=== PATIENT | female | born 1960 | race American Indian/Alaskan Native ===

== ENCOUNTER 2017-01-30 21:21 | Emergency (ER) | payer MEDICAID ==
[2017-01-30 23:47] LABS: Anion Gap 17 mmol/L; Blood Urea Nitrogen 7 mg/dL (7-17); Calcium 8.8 mg/dL (8.4-10.2); Carbon Dioxide 23 mmol/L (22-30); Glucose 104 mg/dL (65-100); Potassium 3.6 mmol/L (3.6-5.0); Sodium 141 mmol/L (137-145)
[2017-01-31 00:03] LABS: Basophils % (Auto) 0.5 % (0.0-1.8); Eosinophils % (Auto) 0.9 % (0.0-4.3); Hematocrit 34.2 % (30.3-42.9); Hemoglobin 11.5 gm/dl (10.1-14.3); Mean Corpuscular HGB Conc 34 % (30-34); Mean Corpuscular Hemoglobin 30 pg (28-32); Mean Corpuscular Volume 90 fl (79-97); Platelet Count 307 K/mm3 (140-440); Red Blood Count 3.82 M/mm3 (3.65-5.03); White Blood Count 9.8 K/mm3 (4.5-11.0)
[2017-01-31] MEDS ORDERED: XYLOCAINE 1% MPF 5 mL INFILTRATI ONE (03:32)
[2017-01-31] MEDS ORDERED: PERCOCET 5/325 PO ONE (03:32)
[2017-01-31] MEDS ORDERED: ROCEPHIN IM ONE (03:32)
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
[2017-01-31 04:33] VITALS: BP 132/88
== END 2017-01-31 04:39 | disposition home or self-care (01) ==
LOC: ED 21:21
DX: K12.2 Cellulitis and abscess of mouth (principal); K05.10 Chronic gingivitis, plaque induced; K02.9 Dental caries, unspecified; F17.200 Nicotine dependence, unspecified, uncomplicated
CPT/HCPCS: 36415; 80048; 85025; 96372; 99283; J0696

== ENCOUNTER 2021-11-09 17:29 | Emergency (ER) | payer MEDICAID, OTHER ==
[2021-11-09 18:25] VITALS: BP 156/82
[2021-11-09] MEDS ORDERED: oxyCODONE /ACETAMINOPHEN 5-325MG TAB PO ONE (20:39)
[2021-11-09] MEDS ORDERED: ONDANSETRON 4 MG ODT TAB PO ONE (20:40)
[2021-11-09] MEDS ORDERED: IBUPROFEN 600 MG TAB PO ONE (20:40)
[2021-11-09] MEDS ORDERED: dexAMETHasone 20 MG/5 ML VIAL IM ONE (20:40)
--- NOTE | 2021-11-09 21:49 | XRay Report ---
LUMBAR SPINE 3 VIEWS INDICATION / CLINICAL INFORMATION: PAIN. COMPARISON: None available. FINDINGS: VERTEBRAE: No fracture. No significant malalignment. DISC SPACES:No significant abnormality. FACET JOINTS:No significant abnormality. ADDITIONAL FINDINGS: None. IMPRESSION: 1. No significant abnormality. Signer Name: Frederick Anne MD Signed: 11/09/2021 9:45 PM Workstation Name: [id number]
[2021-11-09 21:59] LABS: Bilirubin,Urine NEG (Negative); Blood,Urine SM (Negative); Color,Urine Straw (Yellow); Mucus,Urine FEW /HPF; Protein,Urine <15 mg/dL mg/dL (Negative); Urobilinogen,Urine < 2.0 mg/dL (<2.0)
[2021-11-09 22:09] LABS: Basophils # (Auto) 0.1 K/mm3 (0.0-0.1); Basophils % (Auto) 0.5 % (0.0-1.8); Eosinophils # (Auto) 0.2 K/mm3 (0.0-0.4); Eosinophils % (Auto) 1.4 % (0.0-4.3); Hematocrit 39.2 % (30.3-42.9); Hemoglobin 12.9 gm/dl (10.1-14.3); Lymphocytes # (Auto) 4.1 K/mm3 (1.2-5.4); Lymphocytes % (Auto) 33.8 % (13.4-35.0); Mean Corpuscular HGB Conc 33 % (30-34); Mean Corpuscular Volume 94 fl (79-97); Monocytes # (Auto) 1.2 K/mm3 (0.0-0.8); Monocytes % (Auto) 10.3 % (0.0-7.3); Platelet Count 400 K/mm3 (140-440); Red Blood Count 4.16 M/mm3 (3.65-5.03); Red Cell Distribution Width 13.7 % (13.2-15.2)
[2021-11-09 22:37] LABS: Alanine Aminotransferase 8 units/L (7-56); Albumin 4.8 g/dL (3.9-5); BUN/Creatinine Ratio 10; Blood Urea Nitrogen 9 mg/dL (7-17); Calcium 9.8 mg/dL (8.4-10.2); Hemolysis Index 1
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
== END 2021-11-10 00:03 | disposition home or self-care (01) ==
LOC: ED 17:29
DX: S39.012A Strain of muscle, fascia and tendon of lower back, initial encounter (principal); N39.0 Urinary tract infection, site not specified; M62.830 Muscle spasm of back; F17.200 Nicotine dependence, unspecified, uncomplicated; Z79.899 Other long term (current) drug therapy; X50.1XXA Overexertion from prolonged static or awkward postures, initial encounter; Y93.89 Activity, other specified; Y92.89 Other specified places as the place of occurrence of the external cause; Y99.8 Other external cause status
CPT/HCPCS: 36415; 72100; 80053; 81001; 85025; 87086; 96372; 99284; J1100; J3490; Q0162

== ENCOUNTER 2022-06-21 17:33 | Emergency (ER) | payer MEDICAID ==
[2022-06-21 20:07] VITALS: BP 144/78
[2022-06-22] MEDS ORDERED: ONDANSETRON 4 MG ODT TAB PO STA (01:42)
[2022-06-22] MEDS ORDERED: HYDROcodone/ACETAMINOPHEN 5-325 MG TAB PO STA (01:42)
--- NOTE | 2022-06-22 02:17 | XRay Report ---
Lumbar spine 2 views INDICATION: Back pain FINDINGS: Alignment appears normal. Sacrum is not well seen due to bowel loops. Facet changes at L4-5 and L5-S1. No compression fracture. No subluxation Pelvis and right hip 3 views INDICATION: Pain FINDINGS: There is advanced degenerative change of the right.. 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 O steophytes of the femoral head neck junctions bilaterally. Superior and inferior pubic rami appear in tact. IMPRESSION: Mild irregularity at the femoral head neck junction on the right. This most likely represents a colla r osteophyte. If there is concern for fracture CT or MRI could be performed. Protrusio is seen in junior ateral hips. Signer Name: George Thomas MD Signed: 06/22/2022 2:12 AM Workstation Name: [id number]
[2022-06-22 03:14] LABS: Bacteria,Urine 1+ /HPF (Negative); Mucus,Urine 1+ /HPF
[2022-06-22 03:20] LABS: Bilirubin,Urine Negative (Negative); Blood,Urine Negative (Negative); Color,Urine Yellow (Yellow)
[2022-06-22 03:21] LABS: Urobilinogen,Urine < 2.0 mg/dL (<2.0)
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
== END 2022-06-22 04:55 | disposition home or self-care (01) ==
LOC: ED 17:33
DX: R10.9 Unspecified abdominal pain (principal); M54.50 Low back pain, unspecified; R30.0 Dysuria; F17.200 Nicotine dependence, unspecified, uncomplicated
CPT/HCPCS: 72100; 81001; 99283; J3490; Q0162